=== PATIENT | female | born 1940 | race Caucasian/White ===

== ENCOUNTER 2017-04-27 13:54 | Inpatient (IN) | payer MEDICARE ==
[~2017-04-27] VITALS: Ht 160 cm; Wt 73.4 kg
--- NOTE | 2017-04-27 13:58 | ED.REPORT ---
HPI-Chest Pain 40 and Over Date of Service Apr 27, 2017 ED Provider: Faisal Lin DO 77 y/o female with a hx of thyroid disease presents to the ED complaining of worsening SOB during a cardiac stress test today. The pt reports she has been experiencing worsening SOB for about two months. Associated sx include worsening weakness over the last two months, heavy feeling in lower extremities and tingling feeling in the shoulder and face specifically associated with jaw pain and achiness. She denies diffuse left arm pain or facial numbness. She states when tested for sensation, the jaw feels okay "but from the inside it feels numb". Currently, the pt reports feeling stressed with mild jaw discomfort. She denies experiencing SOB in the ED. She admits she may have exerted herself more than usual during the stress test today. The pt takes Aspirin. Nursing Notes Stated Complaint: CHEST PAIN Chief Complaint: Chest Pain Nursing Notes Reviewed: Yes Allergies: Coded Allergies: No Known Allergies (Unverified , 04/27/17) Scheduled Aspirin Chew (Aspirin Chew) 81 Mg Chew 81 MG PO HS Cholecalciferol (Vitamin D3) (Vitamin D3) 5,000 Unit Tablet 5,000 UNIT PO QAM Levothyroxine (Levothyroxine) 75 Mcg Tablet 75 MCG PO QAM [place]-3/Dha/Epa/Fish Oil (Fish Oil 1,360 mg Softgel) 950 Mg (320 Mg-630 Mg)-1, 360 Mg Capsule 1 EACH PO DAILY Vit B Comp/C/FA/Iron/Vit E (Vitamin B Complex Tablet) 1 Each Tablet 1 EACH PO DAILY General Time Seen by MD: 13:56 Chief Complaint Shortness of breath Hx Obtained From: Patient Arrived By: Walk-in Sudden in Onset?: Yes Onset Occurred: Just prior to arrival Context of Onset: Heavy exertion Symptom Duration: 46 - 59 minutes Severity: Current: No pain currently Severity: Maximum: No pain Recent Healthcare: Recent doctor visit Similar Sx Previous: No Past Medical History Past Medical History Reports: Thyroid disease Past Surgical History none reported Smoking History Current Some Day Smoker Social History Alcohol Use: Denies alcohol use Drug Use: Denies drug use Ambulatory Status Independent Review of Systems Reports: heavy feeling in lower extremities. Reports: tingling in left shoulder Reports: jaw discomfort Constitutional: Reports: Weakness - generalized Respiratory: Reports: Shortness of breath (now resolved) Musculoskeletal: Denies: Extremity pain (left arm) Complete sys rev & neg: except as marked. Physical Exam Initial Vital Signs Vital Signs (First) Date Time Temp Pulse Resp B/P Pulse Ox O2 Delivery O2 Flow Rate FiO2 04/27/17 14:23 36.9 81 19 163/102 98 Room Air Initial VS: Reviewed Head / Eyes: Atraumatic, Normocephalic Neck: Non-tender, Full range of motion Extremities: Vascular intact, Neuro intact, No swelling, No tenderness Skin: Warm, Dry, No cyanosis Neurologic: Alert, Oriented, Nonfocal General/Constitutional: Awake, Alert, No acute distress, Cooperative Respiratory / Chest: Atraumatic, Breath sounds NL, Breath sounds = bilat, No respiratory distress, No rales, No rhonchi, No wheezing Cardiovascular: Heart rate NL, Regular rhythm, Heart sounds NL, No gallop, No murmurs, No rubs, Peripheral circulation NL, Pulses = bilaterally (2+ dorsalis pedis pulse) Hypertensive Abdomen: Atraumatic, Soft Neurologic: Oriented X3, Speech NL, No motor deficits, No sensory deficits, CN II - XII intact No reproducible numbness or paresthesia to face or arm. Interpretation & Diagnostics Lab Results Interpretation Result Diagram: 04/27/17 1415 04/27/17 1415 Test 04/27/17 14:15 White Blood Count 7.4th/mm3 (3.8-10.1) Red Blood Count 4.66mil/mm3 (3.90-5.20) Hemoglobin 14.4g/dL (12.0-15.6) Hematocrit 41.2% (35.0-46.0) Mean Corpuscular Volume 88.4fL (81-100) Mean Corpuscular Hemoglobin 30.9pg (27.0-35.0) Mean Corpuscular Hemoglobin Concent 35.0% (32.0-37.0) Red Cell Distribution Width 12.6% (12.3-15.4) Platelet Count 258bil/L (150-400) Neutrophils (%) (Auto) 64.5% (40-74) Lymphocytes (%) (Auto) 24.7% (14-46) Monocytes (%) (Auto) 7.9% (4-12) Eosinophils (%) (Auto) 2.0% (0-5) Basophils (%) (Auto) 0.8% (0-3) Prothrombin Time 10.3sec (8.1-12.5) Prothromb Time International Ratio 0.96ratio Sodium Level 139mEq/L (134-144) Potassium Level 3.8mEq/L (3.5-5.2) Chloride Level 102mEq/L (97-108) Carbon Dioxide Level 20mmol/L (18-29) Blood Urea Nitrogen 16mg/dL (8-27) Creatinine 0.68mg/dL (0.57-1.00) Estimat Glomerular Filtration Rate 120mL/min (>59) Glucose Level 113mg/dL (60-99) Calcium Level 9.4mg/dL (8.5-10.1) Magnesium Level 1.9mg/dL (1.6-2.6) Total Bilirubin 0.6mg/dL (0.0-1.2) Aspartate Amino Transf (AST/SGOT) 24U/L (0-50) Alanine Aminotransferase (ALT/SGPT) 19U/L (0-32) Alkaline Phosphatase 41U/L (25-165) Troponin T < 0.010ug/L (0.0-0.011) Pro-B-Type Natriuretic Peptide 120.3pg/mL (0-738) Total Protein 7.0g/dL (6.4-8.4) Albumin 4.1g/dL (3.4-5.0) ECG Interpretation ECG Interpretation: Normal sinus rhtyhm. Rate 69. Low voltage, extremity and precordial leads Time: 14:08 Interpreted by: ED physician X-Ray Chest Interpretation Chest Xray Interpretation: IMPRESSION: Negative chest. Dictated by: Ronald Delarosa M.D. on 04/27/2017 at 14:57 Approved by: Ronald Delarosa M.D. on 04/27/2017 at 14 View: Portable, 1 view Interpretation / Wet Read by: Interpret - Radiologist Re-Eval/Medical Decision Med Decision/Clinical Course Patient failed her stress test due to shortness of breath and what seems to be an anginal equivalent. Discussed with cardiology who agrees with admission. The plan was to heparinize the patient however after all of her other anginal type symptoms resolved she continued to have a non-reproducible paresthesia of the left side of her face, it is unlikely this is an acute CVA and she is absolutely not a TPA candidate as she would have an NIH stroke scale of 0. However, as we were planning to begin heparin head CT was performed to exclude any evidence of stroke or intracranial hemorrhage or tumor. Patient will be admitted and will plan to have the patient evaluated by cardiology for angiogram. Time of Eval: 14:33 Patient Status: Condition improved Re-Evaluation/Progress Note: Rechecekd pt. Discussed lab and imaging results. Pt understands. All questions answered. Time of Eval: 15:18 Patient Status: Condition improved Re-Evaluation/Progress Note: Discussed plan to admit. Pt understands and agrees with the plan for admission. All questions addressed. Time of Eval: 15:54 Patient Status: Condition improved Re-Evaluation/Progress Note: Dr. Barry at the bedside. Consultation #1: Referral / Consult Name: Leonardo Barry MD Consulted With: Cardiology Call Returned at: 15:15 Tin Flipper: Will see patient, Agrees with eval, Agrees with plan Consultation #2: Referral / Consult Name: Arjun Perez MD Consulted With: Hospitalist Call Returned at: 15:49 Tin Flipper: Will see patient, Agrees with eval, Agrees with plan, Accepts admit Counseled Regarding: Diagnosis, Lab results, Need for admission Discharge & Departure Primary Impression: Chest pain Disposition: ADMITTED TO HOSPITAL Discharge Condition All VS Reviewed: Yes Referrals: Magalis Osorio PA-C (PCP) Crit Care Except Billable Proc Time Spent: 30-74 minutes Services Performed: Patient management by me, Time spent at bedside, Reviewing test results Critical Care Notes: See MDM Scribe Attestation Portions of this note were transcribed by Heavenly Browning. I, , personally performed the history, physical exam and medical decision-making;I reviewed and confirmed the accuracy of the information in the transcribed note. Signed by Ramos Rivas. 04/27/17 16:06 copies to: Magalis Osorio PA-C, Timothy S DO Apr 27, 2017 13:58 Heavenly Browning Apr 27, 2017 14:07
[2017-04-27] MEDS ORDERED: Nitroglycerin 2% 1 Gm Ointment TOPICAL ONE (14:10)
[2017-04-27 14:23] VITALS: BP 163/102; PULSE 81; RESP 19; O2SAT 98
[2017-04-27 14:30] LABS: BASOPHILS % (AUTO) 0.8 % (0-3); MONOCYTES % (AUTO) 7.9 % (4-12); Mean Corpuscular Hemoglobin 30.9 pg (27.0-35.0); Mean Corpuscular Volume 88.4 fL (81-100); NEUTROPHILS % (AUTO) 64.5 % (40-74); Platelet Count 258 bil/L (150-400)
[2017-04-27 14:48] VITALS: BP 121/57; PULSE 68
[2017-04-27 14:53] LABS: INR 0.96 ratio
--- NOTE | 2017-04-27 14:59 | DRSVH ---
PROCEDURE: X-RAY CHEST ONE VIEW, PORTABLE ([id number]) INDICATIONS: CHEST PAIN TECHNIQUE: One view of the chest was acquired. COMPARISON: [facility], CR, XR CHEST 2VW, 09/15/2016, 10:48. FINDINGS: Surgical changes and devices: None. Lungs and pleura: No pleural effusions or pneumothorax. Lungs are clear. Mediastinum: Mediastinal contours appear normal. Heart size is normal. Bones and chest wall: No suspicious bony lesions. Overlying soft tissues appear unremarkable. IMPRESSION: Negative chest. Dictated by: Ronald Delarosa M.D. on 04/27/2017 at 14:57 Approved by: Ronald Delarosa M.D. on 04/27/2017 at 14:57
[2017-04-27 15:01] LABS: TROPONIN T < 0.010 ug/L (0.0-0.011)
[2017-04-27 15:10] LABS: Magnesium 1.9 mg/dL (1.6-2.6)
[2017-04-27] MEDS ORDERED: Ondansetron 2 mg/mL 2 mL Inj IVPUSH PRN ×2 (15:30→15:55)
[2017-04-27] MEDS ORDERED: CHOL500011 PO (15:45)
[2017-04-27] MEDS ORDERED: ASPI81TA3 PO (15:45)
[2017-04-27] MEDS ORDERED: LEVO75TA4 PO (15:45)
[2017-04-27] MEDS ORDERED: [UNRECOGNIZED DRUG - CODE] PO (15:45)
[2017-04-27] MEDS ORDERED: VIT1TABL83 PO (15:45)
[2017-04-27] MEDS ORDERED: Polyethylene Glycol (PEG) 17 Gm Powder PO PRN (15:55)
[2017-04-27] MEDS ORDERED: Alum-Mag Hydrox-Simeth 30 mL Suspension PO PRN (15:55)
--- NOTE | 2017-04-27 16:43 | PCM.CHPCAR ---
Consult Subjective Date of service Apr 27, 2017 Date of admit Apr 27, 2017 at 16:00 Provider Requesting Consult Requesting Provider: Faisal Lin DO Primary Care Physician Primary Care Physician: Magalis Osorio PA-C Chief Complaint Chest pressure during treadmill study History of Present Illness This is a very pleasant 77-year-old female with no prior coronary artery disease. The patient actually had a cardiac catheterization more than 15 years ago by one of our cardiologists here [facility]. The report is not available at this time. The patient has had progressive dyspnea on exertion as well as leg fatigue bilaterally over the past 9 months. The patient states that over the past few months it has become more progressive and to the point that she can only walk one block before having to stop and rest. The patient prior to this was very active and was able to mow her yard without any difficulty but with the recent change of her symptoms she has bought a self- propelled lawnmower because she can no longer push her regular lawnmower. The patient denies any symptoms at rest and only symptoms on exertion. The patient was seen by her primary care provider and she was sent for an exercise treadmill study without imaging. The patient did not have any significant symptoms during the treadmill study except for bilateral leg fatigue which limited her during the stress test. She did reach 99% of maximal HR. Her atress EKG was nondiagnostic for ischemia. Although during the recovery she did have slight flattening of her ST segments and she did develop some chest pressure with radiation to her left shoulder left arm and left jaw. Because of her symptoms she was sent to the emergency room for more emergent care. In the emergency room she had blood work which have shown no evidence of acute myocardial infarction and her EKG is unremarkable. By the time she arrived her chest pressure resolved but she continues to have lingering left jaw discomfort. Patient's other past medical history includes hypothyroidism. She takes supplemental thyroid on top of multiple vitamins. Review of Systems Review of Systems 12 point review of symptoms otherwise negative apart what was mentioned in history of present illness above. PMH Past Medical History See history of present illness above Bedside Blood Glucose: 114 Scheduled Aspirin Chew (Aspirin Chew) 81 Mg Chew 81 MG PO HS (Reported) Cholecalciferol (Vitamin D3) (Vitamin D3) 5,000 Unit Tablet 5,000 UNIT PO QAM ( Reported) Levothyroxine (Levothyroxine) 75 Mcg Tablet 75 MCG PO QAM (Reported) [place]-3/Dha/Epa/Fish Oil (Fish Oil 1,360 mg Softgel) 950 Mg (320 Mg-630 Mg)-1, 360 Mg Capsule 1 EACH PO DAILY (Reported) Vit B Comp/C/FA/Iron/Vit E (Vitamin B Complex Tablet) 1 Each Tablet 1 EACH PO DAILY (Reported) Current Inpatient Medications Current Medications Nitroglycerin 0.4 mg Q5MIN PRN SL Last administered on 04/27/17t 14:38; Admin Dose 0.4 MG; Start 04/27/17 at 14:10 Ondansetron HCl 4 mg Q15M PRN IVPUSH; Start 04/27/17 at 15:30; Stop 04/27/17 at 16:19; Status DC Sodium Chloride 10 ml Q8 IVFLUSH; Start 04/27/17 at 16:30 Famotidine 20 mg BID PO; Start 04/27/17 at 20:30 Al Hydrox/Mg Hydrox/Simethicone 30 ml Q6H PRN PO; Start 04/27/17 at 15:55 Ondansetron HCl 4 to 8 mg Q4H PRN IVPUSH; Start 04/27/17 at 15:55 Senna 17.2 mg BID PRN PO; Start 04/27/17 at 15:55 Polyethylene Glycol 17 gm DAILY PRN PO; Start 04/27/17 at 15:55 Acetaminophen 650 mg Q4H PRN PO; Start 04/27/17 at 15:55 Aspirin 325 mg DAILY PO; Start 04/28/17 at 08:30 Allergies: Coded Allergies: No Known Allergies (Unverified , 04/27/17) Family History Family History Noncontributory Social History Hx Alcohol Use: NoHx Substance Use: No Smoking Status: Current Some Day Smoker Living Arrangement: Alone Exam Vital Signs Vital Sign - Last Date Time Temp Pulse Resp B/P Pulse Ox O2 Delivery O2 Flow Rate FiO2 04/27/17 14:48 68 121/57 04/27/17 14:23 36.9 19 98 Room Air Objective GENERAL: Well-appearing, well-nourished and in no acute distress. HEAD: Atraumatic, normocephalic. EYES: Pupils equal round and reactive to light, extraocular movements intact, sclera anicteric, conjunctiva are normal. ENT: TMs normal, nares patent, oropharynx clear without exudates. Moist mucous membranes. NECK: Normal range of motion, supple without lymphadenopathy or JVD. LUNGS: Breath sounds clear to auscultation bilaterally and equal. No wheezes rales or rhonchi. HEART: Regular rate and rhythm without murmurs, rubs or gallops. ABDOMEN: Soft, nontender, normoactive bowel sounds. No guarding, no rebound. No masses appreciated. EXTREMITIES: Normal range of motion, no pitting or edema. No clubbing or cyanosis. NEUROLOGICAL: Cranial nerves II through XII grossly intact. Normal speech, normal gait. PSYCH: Normal mood, normal affect. SKIN: Warm, Dry, normal turgor, no rashes or lesions noted. Lab and Diagnostics Labs CBC Test 04/27/17 14:15 White Blood Count 7.4th/mm3 (3.8-10.1) Red Blood Count 4.66mil/mm3 (3.90-5.20) Hemoglobin 14.4g/dL (12.0-15.6) Hematocrit 41.2% (35.0-46.0) Mean Corpuscular Volume 88.4fL (81-100) Mean Corpuscular Hemoglobin 30.9pg (27.0-35.0) Mean Corpuscular Hemoglobin Concent 35.0% (32.0-37.0) Red Cell Distribution Width 12.6% (12.3-15.4) Platelet Count 258bil/L (150-400) Neutrophils (%) (Auto) 64.5% (40-74) Lymphocytes (%) (Auto) 24.7% (14-46) Monocytes (%) (Auto) 7.9% (4-12) Eosinophils (%) (Auto) 2.0% (0-5) Basophils (%) (Auto) 0.8% (0-3) CMP Test 04/27/17 14:15 Sodium Level 139mEq/L Potassium Level 3.8mEq/L Chloride Level 102mEq/L Carbon Dioxide Level 20mmol/L Blood Urea Nitrogen 16mg/dL Creatinine 0.68mg/dL Estimat Glomerular Filtration Rate 120mL/min Glucose Level 113mg/dL Calcium Level 9.4mg/dL Magnesium Level 1.9mg/dL Total Bilirubin 0.6mg/dL Aspartate Amino Transf (AST/SGOT) 24U/L Alanine Aminotransferase (ALT/SGPT) 19U/L Alkaline Phosphatase 41U/L Troponin T < 0.010ug/L Total Protein 7.0g/dL Albumin 4.1g/dL Result Diagram: 04/27/17 1415 04/27/17 1415 12-lead ECG Normal sinus rhythm with no evidence of acute ST-T changes. Assessment & Plan Problems: (1) Exertional angina Plan: Patient appears to be having progressive exertional dyspnea equivalent angina over the past 2 months. She has no real significant risk factors except for occasional smoking and previous history of hypercholesterolemia but manage with diet. Given her symptoms which are rather classic for inducible ischemia the patient certainly needs to have further workup for significant coronary artery disease. We discussed about her 2 options which include repeat exercise treadmill study with sestamibi imaging or proceed directly to cardiac catheterization. We discussed about the pros and cons of each ischemic evaluation and understands the risk and benefits of each one. After a long discussion the patient has agreed to go ahead and proceed with coronary angiogram. We will attentively schedule her for tomorrow morning so she will be Nothing by mouth post midnight. However given the fact that she still having residual left jaw discomfort or numbness, I think it would be prudent to get a CT head prior to initiating intravenous heparin. Patient was explained about the reasons why for this and agrees to go ahead and have her CT had completed. Status: Acute ICD Code: I20.8 (2) Facial numbness Plan: My suspicion is that this is probably equivalent to angina but given the fact that it still lingers I would consider getting a CT head to rule out any evidence of CVA/TIA. Patient agrees the plan. Status: Acute ICD Code: R20.0 Resuscitation Status: CPR: Attempt Resuscitation Time spent 100 minutes Leonardo Barry MD Apr 27, 2017 16:43
[2017-04-27 16:50] LABS: APPEARANCE,URINE CLEAR (CLEAR,HAZY); COLOR,URINE YELLOW (YELLOW); OCCULT BLOOD,URINE NEGATIVE (NEGATIVE); UROBILINOGEN,URINE NORMAL (NORMAL)
--- NOTE | 2017-04-27 17:02 | DRSVH ---
PROCEDURE: CT BRAIN WITHOUT CONTRAST ([id number]) INDICATIONS: left facial tingling TECHNIQUE: Noncontrast 4.5 mm thick angled axial sections acquired from the foramen magnum to the vertex, with c oronal reformats. COMPARISON: [facility], CT, CT BRAIN WO CON, 12/04/2015, 12:34. [facility], CT, BRAIN W/O CONTRAST, 03/31/2015, 16:07. FINDINGS: Image quality: Excellent. CSF spaces: Basal cisterns are patent. No extra-axial fluid collections. The ventricles are symmet paloma in size and shape. Brain: No intracranial bleeds or masses. There is cerebral volume loss for age, with resultant vent ricular and sulcal prominence. There are periventricular and deep white matter chronic small vessel ischemic changes. There is intracranial internal carotid artery atherosclerosis. Skull and face: Calvarium and visualized facial bones appear intact, without suspicious lesions. Sinuses: Visualized sinuses and mastoids are clear. IMPRESSION: No acute process. Dictated by: Sanchez Morrison M.D. on 04/27/2017 at 16:59 Approved by: Sanchez Morrison M.D. on 04/27/2017 at 17:00
[2017-04-27] MEDS ORDERED: Heparin 5,000 Unit/mL Inj IVPUSH ONE (17:05)
[2017-04-27] MEDS ORDERED: Heparin 25K Unit/500mL 0.45 NS 25,000 UNIT in IV Premix 1 EACH IV ONE (17:05)
--- NOTE | 2017-04-27 17:05 | NUR ---
Admission Pt arrived on [facility] to Rn [id number]. No complains of increased chest discomfrt. A/Ox3, RA, steady gait. Able to make needs known. Oriented to , visiting hours and call light. Will continue to monitor
[2017-04-27] MEDS ORDERED: 0.9% Sodium Chloride 1,000 ML IV ONE (17:19)
[2017-04-27 17:52] VITALS: BP 143/67; PULSE 66; RESP 18; O2SAT 95
[2017-04-27 18:15] VITALS: PULSE 63
[2017-04-27] MEDS: Sodium Chloride LOK Flush 10 mL Syringe IVFLUSH SCH (18:38)
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
[2017-04-27 21:13] VITALS: BP 136/75; PULSE 69; RESP 18; O2SAT 95
[2017-04-27] MEDS ORDERED: Heparin 5,000 Unit/mL Inj IVPUSH PRN (23:45)
[2017-04-27] MEDS ORDERED: Heparin 25K Unit/500mL 0.45 NS 25,000 UNIT in IV Premix 1 EACH IV SCH (23:45)
--- NOTE | 2017-04-27 23:47 | NUR ---
Heparin infusion Lab reported PTT result of 148.7 at 2332. Infusion stopped, patient updated on intervention. paged with result, ordered stat redraw for 9208. Will continue to follow protocol. Addendum: 04/28/17 at 0118 by NOA JENNINGS RN PTT result at 0047 was 98.6. Heparin infusion restarted, decreased rate by 50 units/hr to 1150 units/hr. Next draw in six hours, scheduled for 0700. Patient updated.
[2017-04-28] VITALS (14 sets, daily range): BP systolic 91–132; BP diastolic 43–72; PULSE 48–79; RESP 12–18; O2SAT 94–98
[2017-04-28] MEDS: Sodium Chloride LOK Flush 10 mL Syringe IVFLUSH SCH ×6 (00:30→17:59)
--- NOTE | 2017-04-28 06:42 | NUR ---
Heparin infusion stopped at 0635. MD order states to stop four hours prior to procedure, patient reported that MD said to plan for around 1100 am.
[2017-04-28 06:55] LABS: BASOPHILS % (AUTO) 0.8 % (0-3); EOSINOPHILS % (AUTO) 3.8 % (0-5); MONOCYTES % (AUTO) 10.5 % (4-12); Mean Corpuscular Hemoglobin 30.8 pg (27.0-35.0); Mean Corpuscular Volume 89.2 fL (81-100); NEUTROPHILS % (AUTO) 53.5 % (40-74); Platelet Count 244 bil/L (150-400)
[2017-04-28 08:00] LABS: ERYTHROCYTE SEDIMENTATION RATE 6 mm/hr (0-40)
[2017-04-28 08:13] LABS: Magnesium 2.2 mg/dL (1.6-2.6)
[2017-04-28] MEDS ORDERED: Heparin 10,000 Unit/1,000 mL NS Premix IV ONE (08:24)
[2017-04-28] MEDS ORDERED: Heparin 1,000 Units/500 mL NS Premix IV ONE (08:24)
--- NOTE | 2017-04-28 09:18 | NUR ---
Ambulation Patient ambulating in room independently and safely. A/O x 3. Using call light appropriately. PT notified.
--- NOTE | 2017-04-28 09:52 | DRSVH ---
PROCEDURE: X-RAY CHEST, TWO VIEWS ([id number]) INDICATIONS: Chest pain TECHNIQUE: 2 views of the chest were acquired. COMPARISON: None. FINDINGS: Surgical changes and devices: telemetry monitor leads are seen over the chest. Lungs and pleura: No pleural effusions or pneumothorax. There is slight indistinctness of the right heart border. There is any evidence for right middle lobe infiltrate clinically? Lungs are otherwise clear. Mediastinum: Mediastinal contours are normal. Heart size is normal. Bones and chest wall: No suspicious bony abnormalities. Soft tissues appear unremarkable. IMPRESSION: Question of subtle infiltrate medial segment right middle lobe otherwise no evidence for acute disease is seen in the two-view chest. Dictated by: Nathan Lee M.D. on 04/28/2017 at 9:49 Approved by: Nathan Lee M.D. on 04/28/2017 at 9:50
[2017-04-28] MEDS ORDERED: 0.9% Sodium Chloride 1,000 ML ONE (10:30)
[2017-04-28] MEDS ORDERED: Abciximab Bolus 2 mg/mL 5 mL Inj ONE ×2 (10:34→10:35)
--- NOTE | 2017-04-28 10:51 | NUR ---
Physical Therapy: Per RN, pt up independently. No PT indicated at this time, pt will be removed from PT caseload. Please re-order if pt has a change in mobility status.
--- NOTE | 2017-04-28 10:53 | NUR ---
RN relayed message to speech therapy that the MD gave a verbal order to d/c swallow eval.
--- NOTE | 2017-04-28 11:14 | NUR ---
Off unit to forestry farm laborer
[2017-04-28] MEDS ORDERED: fentaNYL-PF 50 mCg/mL 2 mL Inj ONE (11:15)
--- NOTE | 2017-04-28 13:46 | PCM.CVCATH ---
Cardiac Cath Report Date of Service Apr 28, 2017 Primary Indication Unstable angina Procedure 1. Left heart catheterization 2. Selective coronary angiogram 3. Left ventricular angiogram 4. Right femoral angiogram Vascular Access Right common femoral artery Procedure Details The patient was brought into the catheterization laboratory. The patient was nothing by mouth since midnight. The patient was prepped and sterilized in the appropriate fashion. Local anesthetic was given to the right groin region with lidocaine 1%. A percutaneous stick to the right groin region with an 18-gauge Seldinger needle was attempted. A 6 Cameroonian sheath was inserted into the right femoral artery. A 6 Cameroonian FL 4 diagnostic catheter was advanced and engaged into the left main. The left coronary angiography was performed in multiple views. The catheter was exchanged over the wire for a 6 Cameroonian FR4 diagnostic catheter. The catheter was engaged in the right coronary ostium and the right coronary angiography was performed in multiple views. The catheter was removed over the wire and exchanged for 6 Cameroonian angle pigtail catheter. LV hemodynamics were recorded. Left ventricular angiography was performed at 10 mL /s for total 30 mL of contrast. LV pullback was performed. All catheters were removed. The right femoral angiogram was performed to evaluate for closure device. Hemostasis was obtained with Perclose. The patient was transferred back to special observation unit for post procedural monitoring. There were no immediate complications. Total fluoroscopy time: 2.0 minutes Total fluoroscopy dosage: 496 mGy Estimated blood loss: 10 mL Total contrast: 95 mL Findings 1. Hemodynamics: The left ventricular systolic pressure was estimated at 114 mmHg and the left ventricular end-diastolic pressure was estimated at 8 mmHg. There is no significant gradient during pullback. The aortic system pressure is 135/56 mmHg. 2. Selective coronary angiography: A. Left main: There artery has no evidence of significant disease. It bifurcates into the left anterior descending and left circumflex arteries. B. Left anterior descending artery: There is a 20% proximal LAD stenosis. The rest of the LAD shows no evidence of significant disease. C. Left circumflex artery: This is a nondominant artery. There is no evidence of significant disease. D. Right coronary artery: This is a dominant vessel. There is no evidence of significant disease. 3. Left ventricular angiogram: The ejection fraction is around 70-75 %. There is no appreciable LV wall motion abnormalities. 4. Right femoral angiogram: There is no evidence of significant disease. Summary 1. No evidence of significant coronary artery disease angiographically. 2. Normal LV ejection fraction and normal LV wall motion. Recommendations Patient has hyperdynamic LV ejection fraction and significant hypertension on exertion. This could be contributing to her shortness of breath on exertion. She has been started on beta blockers with pretty good response. I like to monitor for one more night and get an echo gram to rule out any other structural abnormalities that might be causing her dyspnea on exertion. Leonardo Barry MD Apr 28, 2017 13:46
[2017-04-28] MEDS ORDERED: 0.9% Sodium Chloride 1,000 ML IV PRN (14:12)
[2017-04-28] MEDS ORDERED: 0.9% Sodium Chloride 250 ML IV PRN (14:12)
[2017-04-28] MEDS ORDERED: Atropine 1 mg/10 mL (Code) Syringe IVPUSH PRN (14:15)
--- NOTE | 2017-04-28 14:32 | NUR ---
Post Cath.. Pt received from the laborer cook house at 1215 in stable condition.. Pt has been stable other than noted troy rhythm in the 49 range while sleeping. R groin site remains stable without bleed or hematoma. Is taking po fluids well. No void yet, but will alert receiving RN to this. Dr Barry updated and pt will be transferred back to her room on [facility].
--- NOTE | 2017-04-28 15:04 | NUR ---
Social Work- Initial Assessment/ Readiness for Discharge Data: See Initial Assessment. Pt is a 77 year old female admitted under observation status 04/27/17 for chest pain, R/O ACS per H&P. Per MD, pt is likely to discharge tomorrow after her Echo. Pt's insurance is [employer] [facility]. Pt's PCP is Magalis Osorio PA-C. ALFONZO met with pt's daughter and son in law at bedside regarding discharge plan, ALFONZO role explained. Pt was out of the room in recovery from engineering lab technician. Pt resides in [place] alone in a home with no stairs where she remains independent at baseline. Pt uses no DME and drives. Per daughter, pt and daughter are extremely close. Pt has no history of HH or SNF. Pt may have LTC insurance but pt's daughter is unsure of type. Pt has no VA benefits. Pt has DPOA completed, SW encouraged pt's daughter to bring in copy of this when she is able. Daughter confirms that she will transport pt home at discharge. SW will continue to follow. Assessment: Pt who is independent at baseline. Plan: Pt to discharge home with daughter to transport via POV. No discharge needs identified at this time, SW will continue to follow. DANETTE Augustin Addendum: 04/28/17 at 1508 by JARAD MOMIN SS Amended: Links added.
--- NOTE | 2017-04-28 15:31 | NUR ---
[place] [facility] [place] [facility] [place] Dressing to groin c/d/I. Did admit to minimal pain when getting OOB to toilet in R groin area. Described as "pressure". No bleeding or hematoma at dressing site. IVF running. Tele placed on patient. Daughter at bedside.
[2017-04-28] MEDS: Vitamin B Complex/Vit C Tablet PO SCH (18:00)
[2017-04-28] MEDS: Omega-3 Fatty Acids 1,000 mg Capsule PO SCH (18:00)
--- NOTE | 2017-04-28 18:40 | PCM.PNMED ---
Subjective Date of Service Apr 28, 2017 Subjective The patient has no new complaints after cardiac catheterization. She is a little frustrated that the etiology or cause for her profound weakness and dyspnea on exertion has not been yet identified. Exam Vital Signs Vital Sign - Last Date Time Temp Pulse Resp B/P Pulse Ox O2 Delivery O2 Flow Rate FiO2 04/28/17 17:14 36.3 63 18 101/70 94 Room Air Exam General: Patient is lying in bed in no apparent distress. She only has dyspnea on exertion. HEENT: Head is atraumatic and normocephalic. Eyes: Pupils are equally round and reactive to light and accommodation. Extraocular muscles are intact. Sclera are white, anicteric. Subconjunctival mucosa is pink. Ears and nose are unremarkable. Oropharynx: There is no mucosal lesions, there is no thrush, there is no pharyngitis. Neck: Is supple, there are no nodes, or masses or tenderness. Chest: Is clear to auscultation and percussion. There are no rales, rhonchi, wheezes or rubs. Heart: Rate, rhythm is regular. There is no murmur, rub or gallop. Abdomen: Good bowel sounds are present. Abdomen is soft, nontender, no organomegaly or masses were appreciated. Extremities: Are symmetrical and well perfused. There is no edema, there is no cellulitis, no rash. Neurologic: There are no focal neurological deficits. Cranial nerves II through XII are intact. There are no sensory or motor deficits. Psychiatric: Patients mood is calm and shows no sign of agitation. Genital: Deferred Rectal: Deferred Lab and Diagnostics Result Diagram: 04/28/1762404/28/17 0625 X-Rays, CTs and MRIs PROCEDURE: CT BRAIN WITHOUT CONTRAST ([id number]) INDICATIONS: left facial tingling TECHNIQUE: Noncontrast 4.5 mm thick angled axial sections acquired from the foramen magnum to the vertex, with coronal reformats. COMPARISON: , CT, CT BRAIN WO CON, 12/04/2015, 12:34. , CT, BRAIN W/O CONTRAST, 03/31/2015, 16:07. FINDINGS: Image quality: Excellent. CSF spaces: Basal cisterns are patent. No extra-axial fluid collections. The ventricles are symmetric in size and shape. Brain: No intracranial bleeds or masses. There is cerebral volume loss for age , with resultant ventricular and sulcal prominence. There are periventricular and deep white matter chronic small vessel ischemic changes. There is intracranial internal carotid artery atherosclerosis. Skull and face: Calvarium and visualized facial bones appear intact, without suspicious lesions. Sinuses: Visualized sinuses and mastoids are clear. IMPRESSION: No acute process. Dictated by: Sanchez Morrison M.D. on 04/27/2017 at 16:59 Approved by: Sanchez Morrison M.D. on 04/27/2017 at 17:00 PROCEDURE: X-RAY CHEST ONE VIEW, PORTABLE ([id number]) INDICATIONS: CHEST PAIN TECHNIQUE: One view of the chest was acquired. COMPARISON: [facility], , XR CHEST 2VW, 09/15/2016, 10:48. FINDINGS: Surgical changes and devices: None. Lungs and pleura: No pleural effusions or pneumothorax. Lungs are clear. Mediastinum: Mediastinal contours appear normal. Heart size is normal. Bones and chest wall: No suspicious bony lesions. Overlying soft tissues appear unremarkable. IMPRESSION: Negative chest. Dictated by: Ronald Delarosa M.D. on 04/27/2017 at 14:57 Approved by: Ronald Delarosa M.D. on 04/27/2017 at 14:57 PROCEDURE: X-RAY CHEST, TWO VIEWS ([id number]) INDICATIONS: Chest pain TECHNIQUE: 2 views of the chest were acquired. COMPARISON: None. FINDINGS: Surgical changes and devices: signals collector/analyst leads are seen over the chest. Lungs and pleura: No pleural effusions or pneumothorax. There is slight indistinctness of the right heart border. There is any evidence for right middle lobe infiltrate clinically? Lungs are otherwise clear. Mediastinum: Mediastinal contours are normal. Heart size is normal. Bones and chest wall: No suspicious bony abnormalities. Soft tissues appear unremarkable. IMPRESSION: Question of subtle infiltrate medial segment right middle lobe otherwise no evidence for acute disease is seen in the two-view chest. Dictated by: Nathan Lee M.D. on 04/28/2017 at 9:49 Approved by: Nathan Lee M.D. on 04/28/2017 at 9:50 Assessment & Plan The patient is a pleasant 77-year-old white female with history of hypothyroidism on replacement therapy who for many years used to workout at the gym 3 times per week walking 2 miles on a treadmill and working 5 different weight machines. However, in July of last year the patient began developing fatigue which has become progressively worse. She has developed progressive shortness of breath and leg fatigue to the point where she no longer goes to the gym and whenever she exercises or walks her legs feel very heavy and she becomes very short of breath. Shortness of breath has been getting much worse over the last 2 months with increasing weakness over the last 2 months. Patient saw her primary care provider Magalis Osorio PA-C and was referred to a cardiac stress test today. Patient was to exercise for approximately 8 minutes on the treadmill and she lasted less than 3 minutes failing the test due to shortness of breath and her "legs felt like lead". The patient was sent to emergency room where she was evaluated by Dr. Faisal Sharif. She related that she had been expressing worsening shortness of breath for about 2 months including worsening weakness over the last 2 months. She has had a vent been having heavy feeling in the lower termination tingling feeling in her shoulder and face associated with jaw pain and achiness. She states that when tested for sensation, the jaw feels okay" but from the inside it feels numb". In the emergency room she complained of some mild jaw discomfort. She admitted that she exerted herself more than usual during her stress test date of admission. Patient also related that she used to use a push mower to mow her lawn on [place]. However, recently she had to buy a self propelled mower.: She simply walks behind this mower while it knows the lawn, and after she mowed the grass last time she was exhausted for days. The patient was admitted to the hospitalist service for further evaluation and treatment.. # Progressive shortness of breath and fatigue since July 2016, present at the time of admission. Active - The patient failed a treadmill stress test data admission, lasting less than 3 minutes when she developed severe shortness of breath and heaviness in her legs. After transfer to the emergency room she complained of left-sided jaw pain. - This was all concerning for reproducible exertional angina suggestive of significant coronary artery disease which may be disabling the patient. where she is unable to do any reasonable activities. - Appreciate cardiology consultation by Dr. Barry and patient underwent coronary artery catheterization today which failed to reveal any significant coronary artery disease. - Dr. Barry has ordered an echocardiogram for a.m. - We will check labs including troponin level in a.m. # History of hypothyroidism present at the time of admission. Active - Patient feels she may be having problems with her thyroid replacement medication - However, the patient's TSH indicates therapeutic levels of thyroid replacement therapy. # Left facial numbness resolved - CT of the brain negative - If symptoms persist will consider MRI of the brain Disposition: Patient will be changed from observation to full inpatient admission as she is requiring more than 2 minutes of care due to the complexity of her current illness. Plan for discharge in the next 24-48 hours if all goes well. Discussed with Dr. Barry today Pain Evaluation: Adequate Pain Control GI Prophylaxis: H2 jozef VTE Prophylaxis: Sub-Q Heparin (Unfractionated) VTE Mechanical Devices: Venous Foot Pump Resuscitation Status: CPR: Attempt Resuscitation Arjun Perez MD Apr 28, 2017 18:40
[2017-04-29] MEDS: Sodium Chloride LOK Flush 10 mL Syringe IVFLUSH SCH ×3 (00:30→08:30)
[2017-04-29 01:49] VITALS: BP 106/63; PULSE 77; RESP 17; O2SAT 95
--- NOTE | 2017-04-29 05:14 | NUR ---
Pain Pt complained of right leg and lower back pain 02/26. MD notified. New one time order: Roxicodone, effective. Pt rested through the rest of the night with no further complaints of pain or discomfort. Denies SOB at rest or n/v. Non slip socks on for safety. Bed locked low position. Call light within reach, using appropriately. Frequent rounding in place. Pleasant and cooperative with care.
[2017-04-29 06:11] VITALS: BP 102/58; PULSE 52; RESP 16; O2SAT 97
[2017-04-29 08:12] LABS: BASOPHILS % (AUTO) 0.5 % (0-3); EOSINOPHILS % (AUTO) 2.4 % (0-5); MONOCYTES % (AUTO) 9.4 % (4-12); Mean Corpuscular Hemoglobin 30.7 pg (27.0-35.0); Mean Corpuscular Volume 88.4 fL (81-100); Platelet Count 265 bil/L (150-400)
[2017-04-29] MEDS: Vitamin B Complex/Vit C Tablet PO SCH (08:30)
[2017-04-29] MEDS: Omega-3 Fatty Acids 1,000 mg Capsule PO SCH (08:30)
[2017-04-29 10:17] VITALS: BP 114/69; PULSE 52; RESP 18; O2SAT 94
[2017-04-29 10:26] VITALS: PULSE 56
--- NOTE | 2017-04-29 11:09 | DRSVH ---
Formerly [facility] [address] [place] [address] Echocardiogram Report Name: JONY MOFFETT Da te: 04/29/2017 Height: 63 in Hospital Exam Location: [facility] Weight: 162 lb Gender: Female BSA: 1.8 m2 : 1940 Age: 77 yrs BP: 98/60 mmHg Reason For Study: CHEST PAIN WITH EXERCISE Ordering Physician: HOSPITALIST [facility] Performed By: Justyn Kidd Referring Physician: Magalis Osorio Interpretation Summary The left ventricle is normal in size. Left ventricular systolic function is normal without focal wall motion abnormalities. The ejection fraction is estimated to be 60-65%. Assessment of diastolic parameters indicates a relaxation abnormality of the left ventricle, consistent with normal filling pressures. The right ventricle is normal in size and function. The right ventricular systolic pressure is estimated at 22 mmHg assuming a right atrial pressure of 3 mm Hg. The left atrial size is normal. The right atrium is mildly dilated. There is no significant valvular heart disease. The aortic root is normal size. Compared to the prior echo report on 09/05/2016, there is no significant change. Procedure: A two-dimensional transthoracic echocardiogram with color flow and Doppler was performed. The study quality was technically adequate. The patient was in normal sinus rhythm during the exam. Left Ventricle: The left ventricle is normal in size. There is normal left ventricular wall thickness. Left ventricular systolic function is normal without focal wall motion abnormalities. The ejection fraction is estimated to be 60-65%. Assessment of diastolic parameters indicates a relaxation abnormality of the left ventricle, consistent with normal filling pressures. Right Ventricle: The right ventricle is normal in size and function. Atria: The left atrial size is normal. The right atrium is mildly dilated. The interatrial septum is intact with no evidence for an atrial septal defect. Mitral Valve: The mitral valve is normal in structure and function. There is trace mitral regurgitation. Aortic Valve: The aortic valve is normal in structure and function. The aortic valve is trileaflet. The aortic valve opens well. No aortic regurgitation is present. Tricuspid Valve: The tricuspid valve is normal in structure and function. There is trace tricuspid regurgitation. The right ventricular systolic pressure is estimated at 22 mmHg assuming a right atrial pressure of 3 mm Hg. Pulmonic Valve: The pulmonic valve is normal in structure and function. There is trace pulmonic regurgitation. There is no significant valvular heart disease. Great Vessels: The aortic root is normal size. The dimensions of the ascending aorta are normal. The pulmonary artery is normal size. The IVC is of normal diameter and collapses greater than 50% with a sniff. This suggests a low right atrial pressure of 3 mm Hg. Pericardium/ Pleura There is no pericardial effusion. There is no pleural effusion. MMode/2D Measurements & Calculations LVIDd: 5.0 cm RA long axis asc Aorta LVIDs: 3.2 cm LA A2 area: 15.8 cm Diam: 3.2 cm FS: 35.7 % LA A4 area: 16.5 cm RA area IVSd: 0.62 cm LA length (vol): 5.1 cm LVPWd: 0.85 cm LA vol: 43.4 ml : 19.8 cm LA vol index RA vol: 64.1 ml RA : 36.2 mm2 IVC diam: 0.94 cm LV rodriguez. diameter/BSA LV sys. diameter/BSA (cm/m^2): 2.8 (cm/m^2): 1.8 Doppler Measurements & Calculations Ao V2 max MV E max jaxon MV E/A: 0.87 TR max jaxon : 139.1 cm/sec : 63.5 cm/sec Med Peak E' Jaxon : 218.1 cm/sec Ao max PG MV A max jaxon TR max PG : 7.7 mmHg : 72.6 cm/sec E/E' med: 8.6 : 19.0 mmHg Ao mean PG MV A dur: 0.12 sec PA V2 max : 4.5 mmHg : 90.5 cm/sec PA mean PG PA Accel Time : 0.09 sec MV dec time Ao V2 mean PA V2 mean : 0.27 sec : 102.7 cm/sec : 66.9 cm/sec Ao V2 VTI: 33.2 cm PA pr(Accel) : 34.5 mmHg Reading Physician:FLORENTIN
--- NOTE | 2017-04-29 13:35 | PCM.PNCARD ---
Subjective Date of service Apr 29, 2017 Chief Complaint Chest pressure during treadmill study History of Present Illness Her heart cath showed no evidence of obstructive CAD. Her EF was hyperdynamic on left ventricular angiogram. However after starting her on metoprolol her EF is more normal. She has not hyperdynamic contractility and her HTN is much better controlled. She has walked around the floor 6x today and had no CP or significant SOB. She was on metoprolol 25 mg BID but her BP was low so we decreased her down to 12.5 mg BID. Cardiovascular: Denies: Chest Pain, Irregular Heart Rate, Rapid Heart Rate, SOB on Exertion, SOB while laying flat Respiratory: Denies: SOB with Exertion, Wake up Gasping for Breath, Wake up SOB Musculoskeletal: Denies: Ankle Pain, Knee Pain Neurological: Denies: Confusion Exam Vital Signs Vital Sign - Last Date Time Temp Pulse Resp B/P Pulse Ox O2 Delivery O2 Flow Rate FiO2 04/29/17 10:26 56 04/29/17 10:17 36.6 18 114/69 94 Room Air Intake and Output 04/28/17 04/28/17 04/29/17 Cumulative From/Thru 15:00 23:00 07:00 04/27/17 14:23 - 04/29/17 06:17 Intake Total 1400 ml 554 ml 280 ml 2234 ml Output Total 2450 ml 800 ml 700 ml 3950 ml Balance -1050 ml -246 ml -420 ml -1716 ml Intake Oral 1400 ml 400 ml 280 ml 2080 ml IV Total 154 ml 154 ml Output Urine Total 2450 ml 800 ml 700 ml 3950 ml # Bowel Movements 1 1 General: Pleasant Cooperative Skin: Warm & dry to touch Cardiac: Regular rhythm Normal S1 and S2 No S3 or S4 Neurological: Alert & oriented Lab and Diagnostics Result Diagram: 04/29/17 0745 04/29/17 0745 Assessment & Plan Problems: (1) Exertional angina Plan: Most likely secondary to accelerated HTN. Continue with metoprolol tartrate 12.5 mg BID. Follow up with me in 2-3 months. Status: Acute ICD Code: I20.8 (2) Facial numbness Status: Acute ICD Code: R20.0 Pain Evaluation: Adequate Pain Control GI Prophylaxis: H2 jozef VTE Prophylaxis: Sub-Q Heparin (Unfractionated) VTE Mechanical Devices: Venous Foot Pump Resuscitation Status: CPR: Attempt Resuscitation Time spent 15 minutes Jhonny, Leonardo J MD Apr 29, 2017 13:35
[2017-04-29 14:00] VITALS: BP 120/70; PULSE 61; RESP 18; O2SAT 97
--- NOTE | 2017-04-29 14:05 | PCM.DIMED ---
Discharge Instructions Date of Service Apr 29, 2017 Dates of Hospitalization Apr 27, 2017 at 16:00 Discharge Diagnosis Discharge Diagnosis Severe Dyspnea on exertion due to Accelerated Symptomatic Hypertension. Diet Discharge Diet: Heart Healthy Activity Discharge Activity: No restrictions (The patient may increase her activity gradually as tolerated.) Call your provider Call your provider for: Fever or Chills, Shortness of breath, Bleeding, Chest pain, Vomitting, Excessive diarrhea, Weakness (unilateral) Patient Instructions Follow-up Provider: Magalis Osorio PA-C Follow-up with PCP in: 1 week Provider: Leonardo Barry MD Follow-up in: Other (3 months) Arjun Perez MD Apr 29, 2017 14:05
[2017-04-29] MEDS ORDERED: METO25TA6 PO (14:10)
[2017-04-29] MEDS ORDERED: ATOR40TA69 PO (14:10)
[2017-04-29] MEDS ORDERED: NITR0.4T SL (14:10)
--- NOTE | 2017-04-29 16:10 | NUR ---
Discharge Personal belongings removed from safe and given to patient. IV x 2 dc'd fully intact. Tele removed. All personal belongings given to patient. Discharge instructions given to patient who verbalizes understanding and agrees to plan of care. Patient ambulated off of unit with [employer].
--- NOTE | 2017-04-29 23:05 | PCM.DC.MED ---
Discharge Summary Date of Service Apr 29, 2017 Dates of Hospitalization Date of Hospital Admission Apr 27, 2017 at 16:00 Date of Discharge: Apr 29, 2017 Providers: Admitting Physician: Arjun Perez MD Primary Care Physician: Magalis Osorio PA-C Attending Physician: Arjun Perez MD Diagnosis at Time of Discharge Diagnosis at Time of Discharge Severe Dyspnea on exertion due to Accelerated Symptomatic Hypertension. Procedures XRay, CTs & MRIs PROCEDURE: CT BRAIN WITHOUT CONTRAST ([id number]) INDICATIONS: left facial tingling TECHNIQUE: Noncontrast 4.5 mm thick angled axial sections acquired from the foramen magnum to the vertex, with coronal reformats. COMPARISON: [facility], CT, CT BRAIN WO CON, 12/04/2015, 12:34. [facility], CT, BRAIN W/O CONTRAST, 03/31/2015, 16:07. FINDINGS: Image quality: Excellent. CSF spaces: Basal cisterns are patent. No extra-axial fluid collections. The ventricles are symmetric in size and shape. Brain: No intracranial bleeds or masses. There is cerebral volume loss for age , with resultant ventricular and sulcal prominence. There are periventricular and deep white matter chronic small vessel ischemic changes. There is intracranial internal carotid artery atherosclerosis. Skull and face: Calvarium and visualized facial bones appear intact, without suspicious lesions. Sinuses: Visualized sinuses and mastoids are clear. IMPRESSION: No acute process. Dictated by: Sanchez Morrison M.D. on 04/27/2017 at 16:59 Approved by: Sanchez Morrison M.D. on 04/27/2017 at 17:00 PROCEDURE: X-RAY CHEST ONE VIEW, PORTABLE ([id number]) INDICATIONS: CHEST PAIN TECHNIQUE: One view of the chest was acquired. COMPARISON: [facility], CR, XR CHEST 2VW, 09/15/2016, 10:48. FINDINGS: Surgical changes and devices: None. Lungs and pleura: No pleural effusions or pneumothorax. Lungs are clear. Mediastinum: Mediastinal contours appear normal. Heart size is normal. Bones and chest wall: No suspicious bony lesions. Overlying soft tissues appear unremarkable. IMPRESSION: Negative chest. Dictated by: Ronald Delarosa M.D. on 04/27/2017 at 14:57 Approved by: Ronald Delarosa M.D. on 04/27/2017 at 14:57 PROCEDURE: X-RAY CHEST, TWO VIEWS ([id number]) INDICATIONS: Chest pain TECHNIQUE: 2 views of the chest were acquired. COMPARISON: None. FINDINGS: Surgical changes and devices: patient monitor leads are seen over the chest. Lungs and pleura: No pleural effusions or pneumothorax. There is slight indistinctness of the right heart border. There is any evidence for right middle lobe infiltrate clinically? Lungs are otherwise clear. Mediastinum: Mediastinal contours are normal. Heart size is normal. Bones and chest wall: No suspicious bony abnormalities. Soft tissues appear unremarkable. IMPRESSION: Question of subtle infiltrate medial segment right middle lobe otherwise no evidence for acute disease is seen in the two-view chest. Dictated by: Nathan Lee M.D. on 04/28/2017 at 9:49 Approved by: Nathan Lee M.D. on 04/28/2017 at 9:50 Cardiac Echo Impression Echocardiogram Report Name: JONY MOFFETT CStudy Da te: 04/29/2017 Height: 63 in Hospital Exam Location: [facility] Weight: 162 lb Gender: Female BSA: 1.8 m2 : 1940 Age: 77 yrs BP: 98/60 mmHg Reason For Study: CHEST PAIN WITH EXERCISE Ordering Physician: HOSPITALIST [facility] Performed By: Justyn Kidd Referring Physician: Magalis Osorio Interpretation Summary The left ventricle is normal in size. Left ventricular systolic function is normal without focal wall motion abnormalities. The ejection fraction is estimated to be 60-65%. Assessment of diastolic parameters indicates a relaxation abnormality of the left ventricle, consistent with normal filling pressures. The right ventricle is normal in size and function. The right ventricular systolic pressure is estimated at 22 mmHg assuming a right atrial pressure of 3 mm Hg. The left atrial size is normal. The right atrium is mildly dilated. There is no significant valvular heart disease. The aortic root is normal size. Compared to the prior echo report on 09/05/2016, there is no significant change. Brief History The patient is a pleasant 77-year-old white female with history of hypothyroidism on replacement therapy who for many years used to workout at the gym 3 times per week walking 2 miles on a treadmill and working 5 different weight machines. However, in July of last year the patient began developing fatigue which has become progressively worse. She has developed progressive shortness of breath and leg fatigue to the point where she no longer goes to the gym and whenever she exercises or walks her legs feel very heavy and she becomes very short of breath. Shortness of breath has been getting much worse over the last 2 months with increasing weakness over the last 2 months. Patient saw her primary care provider Magalis Osorio PA-C and was referred to a cardiac stress test today. Patient was to exercise for approximately 8 minutes on the treadmill and she lasted less than 3 minutes failing the test due to shortness of breath and her "legs felt like lead". The patient was sent to [facility] emergency room where she was evaluated by Dr. Faisal Sharif. She related that she had been expressing worsening shortness of breath for about 2 months including worsening weakness over the last 2 months. She has had a vent been having heavy feeling in the lower termination tingling feeling in her shoulder and face associated with jaw pain and achiness. She states that when tested for sensation, the jaw feels okay" but from the inside it feels numb". In the emergency room she complained of some mild jaw discomfort. She admitted that she exerted herself more than usual during her stress test date of admission. Patient also related that she used to use a push mower to mow her lawn on [place]. However, recently she had to buy a self propelled mower.: She simply walks behind this mower while it knows the lawn, and after she mowed the grass last time she was exhausted for days. The patient was admitted to the hospitalist service for further evaluation and treatment.. Hospital Course The patient is a pleasant 77-year-old white female with history of hypothyroidism on replacement therapy who for many years used to workout at the gym 3 times per week walking 2 miles on a treadmill and working 5 different weight machines. However, in July of last year the patient began developing fatigue which has become progressively worse. She has developed progressive shortness of breath and leg fatigue to the point where she no longer goes to the gym and whenever she exercises or walks her legs feel very heavy and she becomes very short of breath. Shortness of breath has been getting much worse over the last 2 months with increasing weakness over the last 2 months. Patient saw her primary care provider Magalis Osorio PA-C and was referred to a cardiac stress test today. Patient was to exercise for approximately 8 minutes on the treadmill and she lasted less than 3 minutes failing the test due to shortness of breath and her "legs felt like lead". The patient was sent to [facility] emergency room where she was evaluated by Dr. Faisal Sharif. She related that she had been expressing worsening shortness of breath for about 2 months including worsening weakness over the last 2 months. She has had a vent been having heavy feeling in the lower termination tingling feeling in her shoulder and face associated with jaw pain and achiness. She states that when tested for sensation, the jaw feels okay" but from the inside it feels numb". In the emergency room she complained of some mild jaw discomfort. She admitted that she exerted herself more than usual during her stress test date of admission. Patient also related that she used to use a push mower to mow her lawn on [place]. However, recently she had to buy a self propelled mower.: She simply walks behind this mower while it knows the lawn, and after she mowed the grass last time she was exhausted for days. The patient was admitted to the hospitalist service for further evaluation and treatment.. # Progressive shortness of breath and fatigue since July 2016, present at the time of admission. Active and secondary to "Accelerated Symptomatic Hypertension" per cardiology. Symptoms improved with metoprolol. - The patient failed a treadmill stress test data admission, lasting less than 3 minutes when she developed severe shortness of breath and heaviness in her legs. After transfer to the emergency room she complained of left-sided jaw pain. - This was all concerning for reproducible exertional angina suggestive of significant coronary artery disease which may be disabling the patient. where she is unable to do any reasonable activities. - Appreciate cardiology consultation by Dr. Barry and patient underwent coronary artery catheterization today which failed to reveal any significant coronary artery disease. - Dr. Barry ordered an echocardiogram showing failed reveal any significant abnormalities. - Continue metoprolol 12.5 mg by mouth twice a day # History of hypothyroidism present at the time of admission. Active - Patient feels she may be having problems with her thyroid replacement medication - However, the patient's TSH indicates therapeutic levels of thyroid replacement therapy. # Left facial numbness resolved - CT of the brain negative Disposition: Patient will be discharged home today as cleared by cardiology. Patient is also very eager for discharge and is agreeable with this plan. Exam Vital Signs (Last) Date Time Temp Pulse Resp B/P Pulse Ox O2 Delivery O2 Flow Rate FiO2 04/29/17 14:00 36.6 61 18 120/70 97 Room Air Exam General: Patient is lying in bed in no apparent distress. She only has less dyspnea on exertion on metoprolol. She was able to [place] the nurses station 6 times today. HEENT: Head is atraumatic and normocephalic. Eyes: Pupils are equally round and reactive to light and accommodation. Extraocular muscles are intact. Sclera are white, anicteric. Subconjunctival mucosa is pink. Ears and nose are unremarkable. Oropharynx: There is no mucosal lesions, there is no thrush, there is no pharyngitis. Neck: Is supple, there are no nodes, or masses or tenderness. Chest: Is clear to auscultation and percussion. There are no rales, rhonchi, wheezes or rubs. Heart: Rate, rhythm is regular. There is no murmur, rub or gallop. Abdomen: Good bowel sounds are present. Abdomen is soft, nontender, no organomegaly or masses were appreciated. Extremities: Are symmetrical and well perfused. There is no edema, there is no cellulitis, no rash. Neurologic: There are no focal neurological deficits. Cranial nerves II through XII are intact. There are no sensory or motor deficits. Psychiatric: Patients mood is calm and shows no sign of agitation. She is in good spirits today Genital: Deferred Rectal: Deferred Test 04/27/17 14:15 04/27/17 16:38 04/28/17 00:13 04/28/17 06:00 Prothrombin Time 10.3sec (8.1-12.5) Prothromb Time International Ratio 0.96ratio Urine Color Yellow (YELLOW) Urine Appearance Clear (CLEAR,HAZY) Urine pH 6.0 (5.0-8.0) Urine Specific [place] 1.010 (1.003-1.035) Urine Protein Negativemg/dL (NEG,TRACE) Urine Glucose (UA) Negativemg/dL (NEGATIVE) Urine Ketones 15mg/dL (NEGATIVE) Urine Occult Blood Negative (NEGATIVE) Urine Nitrite Negative (NEGATIVE) Urine Bilirubin Negative (NEGATIVE) Urine Urobilinogen Normalmg/dL (NORMAL) Urine Leukocyte Esterase Negative (NEGATIVE) Urine RBC 0-2/hpf (0-2) Urine WBC 0-5/hpf (0-5) Urine Epithelial Cells Occasional/hpf (NONE-MOD) Urine Crystals None seen (NONE SEEN) Urine Bacteria Few/hpf (NONE-FEW) Urine Hyaline Casts None/lpf (NONE) Urine Granular Casts None seen (NONE SEEN) Urine Waxy Casts None seen (NONE SEEN) Urine Red Blood Cell Casts None seen (NONE SEEN) Urine White Blood Cell Casts None seen (NONE SEEN) Urine Mucus None seen (None Seen) Urine Trichomonas None seen (NONE SEEN) Urine Yeast None (NONE SEEN) Urinalysis Comment None Urine Culture Reflexed Not indicated Activated Partial Thromboplast Time 98.6sec (22.8-33.0) Troponin T 0.010ug/L (0.0-0.011) Test 04/28/17 06:25 04/29/17 07:45 Erythrocyte Sedimentation Rate 6mm/hr (0-40) C-Reactive Protein 0.1mg/dL (0.0-0.5) Thyroid Stimulating Hormone (TSH) 0.996uIU/mL (0.450-4.500) White Blood Count 10.1th/mm3 (3.8-10.1) Red Blood Count 4.76mil/mm3 (3.90-5.20) Hemoglobin 14.6g/dL (12.0-15.6) Hematocrit 42.1% (35.0-46.0) Mean Corpuscular Volume 88.4fL (81-100) Mean Corpuscular Hemoglobin 30.7pg (27.0-35.0) Mean Corpuscular Hemoglobin Concent 34.7% (32.0-37.0) Red Cell Distribution Width 12.8% (12.3-15.4) Platelet Count 265bil/L (150-400) Neutrophils (%) (Auto) 66.0% (40-74) Lymphocytes (%) (Auto) 21.5% (14-46) Monocytes (%) (Auto) 9.4% (4-12) Eosinophils (%) (Auto) 2.4% (0-5) Basophils (%) (Auto) 0.5% (0-3) Sodium Level 135mEq/L (134-144) Potassium Level 4.3mEq/L (3.5-5.2) Chloride Level 102mEq/L (97-108) Carbon Dioxide Level 17mmol/L (18-29) Blood Urea Nitrogen 15mg/dL (8-27) Creatinine 0.75mg/dL (0.57-1.00) Estimat Glomerular Filtration Rate 107mL/min (>59) Glucose Level 106mg/dL (60-99) Calcium Level 9.6mg/dL (8.5-10.1) Magnesium Level 2.0mg/dL (1.6-2.6) Total Bilirubin 0.5mg/dL (0.0-1.2) Aspartate Amino Transf (AST/SGOT) 23U/L (0-50) Alanine Aminotransferase (ALT/SGPT) 18U/L (0-32) Alkaline Phosphatase 42U/L (25-165) Pro-B-Type Natriuretic Peptide 132.5pg/mL (0-738) Total Protein 6.4g/dL (6.4-8.4) Albumin 4.2g/dL (3.4-5.0) Procalcitonin 0.03ng/mL (0.00-0.08) Discharge Medications Discharge Medications Aspirin Chew (Aspirin Chew) 81 Mg Chew 81 MG PO HS (Reported) Atorvastatin Calcium (Atorvastatin Calcium) 40 Mg Tablet 40 MG PO HS Prescribed by: EFRAIN PEREZ MD Cholecalciferol (Vitamin D3) (Vitamin D3) 5,000 Unit Tablet 5,000 UNIT PO QAM ( Reported) Levothyroxine (Levothyroxine) 75 Mcg Tablet 75 MCG PO QAM (Reported) Metoprolol Tartrate (Metoprolol Tartrate) 25 Mg Tablet 12.5 MG PO BID Prescribed by: EFRAIN PEREZ MD Delta-3/Dha/Epa/Fish Oil (Fish Oil 1,360 mg Softgel) 950 Mg (320 Mg-630 Mg)-1, 360 Mg Capsule 1 EACH PO DAILY (Reported) Vit B Comp/C/FA/Iron/Vit E (Vitamin B Complex Tablet) 1 Each Tablet 1 EACH PO DAILY (Reported) As needed Nitroglycerin SL (Nitrostat) 0.4 Mg Tab.subl 0.4 MG SL PRN PRN PRN For Chest Pain Prescribed by: EFRAIN PEREZ MD Followup Plan Disposition: Patient is being discharged home. Discharge Diet: Heart Healthy Discharge Activity: No restrictions (The patient may increase her activity gradually as tolerated.) Follow-up Provider: Magalis Osorio PA-C Follow-up with PCP in: 1 week Provider: Leonardo Barry MD Follow-up in: Other (3 months) Time spent Time spent on discharging this patient was greater than 35 minutes, over half of which was involved in counseling and coordination of care. Arjun Perez MD Apr 29, 2017 23:05
== END 2017-04-29 16:04 | disposition home or self-care (01) | DRG 287 ==
LOC: SED 13:54 → MPC 16:00 → OBSVTOIN 16:00
PROVIDERS: ADMIT Internal Medicine Infectious Disease; ATTEND Internal Medicine Infectious Disease
PROC: 4A023N7 Measurement of Cardiac Sampling and Pressure, Left Heart, Percutaneous Approach (ICD-10-PCS; principal; 2017-04-28)
PROC: B2111ZZ Fluoroscopy of Multiple Coronary Arteries using Low Osmolar Contrast (ICD-10-PCS; 2017-04-28)
DX: I20.8 Other forms of angina pectoris (principal); I10 Essential (primary) hypertension; E03.9 Hypothyroidism, unspecified; R20.0 Anesthesia of skin; Z87.891 Personal history of nicotine dependence